=== PATIENT | male | born 1970 | race Hispanic/Latino ===

== ENCOUNTER → 2024-09-23 | Outpatient (CLI) | payer OTHER | LOC: M RAD 16:31 | PROVIDERS: ATTEND Family Medicine | DX: S27.30 Unspecified injury of lung (principal); K76.89 Other specified diseases of liver; J47.9 Bronchiectasis, uncomplicated ==

== ENCOUNTER 2025-01-05 09:02 | Day surgery (SDC) | payer OTHER ==
[~2025-01-05] VITALS: Ht 170.2 cm; Wt 92.9 kg
[~2025-01-05 09:02] MED LIST: FEXO-63 PO; LIDOCAINE W/EPINEPHRINE 1% 20ML VIAL XX ONE; SODIUM BICARBONATE 8.4% INJ 50MEQ 50ML VIAL XX ONE
[2025-01-05] MEDS ORDERED: BACITRACIN OINTMENT 30GM TUBE As Ordered ONE (11:01)
[2025-01-05] MEDS: ceFAZolin SOD 2 GM in IV 1 EA IV ONE (11:12)
[2025-01-05 11:55] VITALS: BP 136/73; TEMP 97; O2SAT 97
== END 2025-01-05 11:57 | disposition home or self-care (01) ==
LOC: M SDC 09:02
PROVIDERS: ATTEND Orthopaedic Surgery
DX: M65.331 Trigger finger, right middle finger (principal); G47.33 Obstructive sleep apnea (adult) (pediatric); Z79.899 Other long term (current) drug therapy
CPT/HCPCS: 26055; J0690

== ENCOUNTER → 2025-03-05 | Outpatient (CLI) | payer OTHER ==
[~2025-03-05] MED LIST changes: -LIDOCAINE W/EPINEPHRINE 1% 20ML VIAL XX ONE; +PROHANCE 279.3MG/ML 15ML VIAL ONE; +PROHANCE 279.3MG/ML 5ML VIAL ONE; -SODIUM BICARBONATE 8.4% INJ 50MEQ 50ML VIAL XX ONE
== END ==
LOC: M PLAIMG 06:33
PROVIDERS: ATTEND Neurological Surgery
DX: G93.0 Cerebral cysts (principal); M54.2 Cervicalgia
CPT/HCPCS: 70553; 72141; A9576

== ENCOUNTER → 2025-03-30 | Outpatient (CLI) | payer OTHER ==
[~2025-03-30] MED LIST changes: -PROHANCE 279.3MG/ML 15ML VIAL ONE; -PROHANCE 279.3MG/ML 5ML VIAL ONE
[2025-03-30 11:39] LABS: BASO % 0.5 % (0.0-1.0); EOS # 0.1 10^3/uL (0.0-0.5); HEMOGLOBIN 13.6 g/dl (13.5-17.5); LYMPH # 2.3 10^3/uL (1.5-5.0); MEAN CORPUSCULAR HGB CONC 33.2 g/dl (32.0-36.5); MEAN CORPUSCULAR VOLUME 90.5 fl (80.0-96.0); MONO # 0.5 10^3/uL (0.0-0.8); MONO % 8.6 % (2.0-8.0); NEUTROPHILS # 3.2 10^3/uL (1.5-8.5); NEUTROPHILS % 51.6 % (36.0-66.0); PLATELET COUNT, AUTOMATED 257 10^3/uL (150-450); RED BLOOD COUNT 4.53 10^6/uL (4.30-6.10); WHITE BLOOD COUNT 6.2 10^3/uL (4.0-10.0)
[2025-03-30 12:26] LABS: C REACTIVE PROTEIN QUANTITATIV < 0.50 MG/DL (<1.0)
[2025-03-30 13:17] LABS: IMMUNOGLOBULIN E 1038.8 IU/ML (0-378)
[2025-04-02 08:02] LABS: BERMUDA GRASS IGE < 0.10 kU/L (<0.10); BIRCH IGE < 0.10 kU/L (<0.10); COMMON RAGWEED SHORT IGE < 0.10 kU/L (<0.10); D001 IGE D PTERONYSSINUS 5.15 kU/L (<0.10); D002-IGE D FARINAE 7.88 kU/L (<0.10); E001-IGE CAT DANDER < 0.10 kU/L (<0.10); E005-IGE DOG DANDER < 0.10 kU/L (<0.10); ELM IGE < 0.10 kU/L (<0.10); I006 IGE COCKROACH < 0.10 kU/L (<0.10); IMMUNOGLOBULIN E FOR ALLERGENS 1088 kU/L (<OR=114); M002 IGE CLADOSPORIUM HERBARU 0.19 kU/L (<0.10); M003 IGE ASPERGILLUS FUMIGATU 0.15 kU/L (<0.10); M006 IGE ALTERNIA ALTERNATA 0.13 kU/L (<0.10); M1-PENICILLIUM NOTATUM 6.39 kU/L (<0.10); MOUSE URINE IGE < 0.10 kU/L (<0.10); MUGWORT IGE < 0.10 kU/L (<0.10); OAK IGE < 0.10 kU/L (<0.10); SHEEP SORREL IGE 0.11 kU/L (<0.10); SYCAMORE IGE < 0.10 kU/L (<0.10); T001-IGE MAPLE BOX ELDER < 0.10 kU/L (<0.10); T014 COTTONWOOD IGE < 0.10 kU/L (<0.10); WALNUT TREE IGE < 0.10 kU/L (<0.10); WHITE ASH IGE < 0.10 kU/L (<0.10); WHITE MULBERRY IGE < 0.10 kU/L (<0.10)
== END ==
LOC: M LAB 10:59
PROVIDERS: ATTEND Internal Medicine Critical Care Medicine
DX: J47.9 Bronchiectasis, uncomplicated (principal)